=== PATIENT | male | born 1990 | race Caucasian/White ===

== ENCOUNTER 2024-03-28 14:33 | Emergency (ER) | payer OTHER ==
[~2024-03-28] VITALS: Ht 170.2 cm; Wt 108.1 kg
[2024-03-28] MEDS ORDERED: HYDROmorphone HCL 1 MG/ML SYR IV PRN (14:45)
[2024-03-28] MEDS ORDERED: CEFAZOLIN SODIUM 3 GM/30 ML SYR IV ONE (14:45)
[2024-03-28] MEDS ORDERED: DIPHTH,PERTUSS(ACELL),TET VAC 0.5 ML SYRINGE IM ONE (14:45)
[2024-03-28] MEDS ORDERED: ondansetron HCL 4 MG/2 ML VIAL IV ONE (14:45)
[2024-03-28 15:00] LABS: BASOPHILS 0.7 % (0-2); EOSINOPHILS 1.3 % (0-6); HEMATOCRIT 43.2 % (35.0-50.0); HEMOGLOBIN 14.3 g/dL (12.0-18.0); LYMPHOCYTES 31.4 % (24-44); MCH 29.9 (27-36); MCHC 33.2 g/dl (30-36); MONOCYTES 6.9 % (0-12); NEUTROPHILS 59.7 % (39-80); PLATELET COUNT 279 K/uL (140-440); RDW 13.2 (10.5-15.0)
[2024-03-28 15:11] LABS: ALBUMIN 4.3 g/dL (3.4-5.0); ALBUMIN/GLOBULIN RATIO 1.39 (1.1-2.4); ALCOHOL, MEDICAL <3 ng/dL (<3); ALKALINE PHOSPHATASE 63 U/L (46-116); ALT (SGPT) 40 U/L (14-59); ANION GAP 15.4 (7-21); AST (SGOT) 19 U/L (15-37); BILIRUBIN, TOTAL 0.3 ng/dL (0.2-1.0); BUN/CREATININE RATIO 23.36 (6.0-28.6); CALCIUM 9.2 mg/dL (8.5-10.1); CARBON DIOXIDE 27 mmol/L (21-32); CHLORIDE 102 mmol/L (98-107); CREATININE, SERUM 1.07 mg/dL (0.70-1.30); GLOMERULAR FILTRATION RATE,EST 94 mL/min (>60); POTASSIUM 3.4 mmol/L (3.5-5.1); PROTEIN, TOTAL 7.4 g/dL (6.4-8.2); UREA NITROGEN 25 mg/dL (7-18)
[2024-03-28 15:39] LABS: ABO O; RH POSITIVE
[2024-03-28 15:40] LABS: ANTIBODY SCREEN NEGATIVE
[2024-03-28] MEDS ORDERED: HYDROmorphone HCL 1 MG/ML SYR IV ONE (17:45)
[2024-03-28 19:33] VITALS: BP 150/99
[2024-03-28 19:49] LABS: AMPHETAMINES, URINE NEGATIVE (NEGATIVE); BARBITURATES, URINE NEGATIVE (NEGATIVE); BENZODIAZEPINE, URINE NEGATIVE (NEGATIVE); BUPRENORPHINE, URINE NEGATIVE (NEGATIVE); CANNABINOID, URINE NEGATIVE (NEGATIVE); COCAINE, URINE NEGATIVE (NEGATIVE); ECSTASY, URINE NEGATIVE (NEGATIVE); FENTANYL, URINE NEGATIVE (NEGATIVE); METHADONE, URINE NEGATIVE (NEGATIVE); OPIATES, URINE POSITIVE (NEGATIVE); OXYCODONE, URINE NEGATIVE (NEGATIVE); PHENCYCLIDINE, URINE NEGATIVE (NEGATIVE)
== END 2024-03-28 19:33 | disposition short-term general hospital (02) ==
LOC: ED 14:33
PROVIDERS: Emergency Medicine
DX: S62.313B Displaced fracture of base of third metacarpal bone, left hand, initial encounter for open fracture (principal); W23.0XXA Caught, crushed, jammed, or pinched between moving objects, initial encounter
CPT/HCPCS: 36415; 73110; 73130; 80053; 80307; 85025; 86850; 86900; 86901; 90471; 90715; 96374; 96375; 96376; 99284-25; G0480; J0690; J1170; J2405